=== PATIENT | female | born 1950 | race Caucasian/White ===

== ENCOUNTER → 2018-06-22 05:57 | Day surgery (SDC) | payer BC ==
[~2018-06-22 05:57] MED LIST: Atracurium* 10 MG/ML 10 ML VIAL ONE; Buffered Lidocaine 0.9% SYRIN* 5 ML/SYR SYRINGE INTRADERM ONE; Dexamethasone TAB* 4 MG ONE; Dexamethasone TAB* 4 MG PO ONE; DiMENhydriNATE IV* 50 MG/ML VIAL IV PUSH PRN; Famotidine IV* 10 MG/ML 2 ML (20 mg) IV ONE; Famotidine IV* 10 MG/ML 2 ML (20 mg) ONE; Lidocaine 2% PF * 5 ML VIAL ONE; Midazolam* 1 MG/ML 10 ML VIAL (10 MG) ONE; Naloxone* 0.4 MG/ML 1 ML VIAL IV PRN; Ondansetron ODT TAB* 4 MG ONE; Ondansetron TAB* 4 MG PO ONE; PROCHLORPERAZINE INJ 5 MG/ML 2 ML VIAL IV PRN; Phenylephrine INJ* 10 MG/ML 1 ML VIAL (10 MG) ONE; Propofol* 10 MG/ML 20 ML BTL IV PUSH ONE; Scopolamine 1.5 mg* PATCH TRANSDERM PRN; Scopolamine PATCH Remove* 1 NOTE MISC PATCH OFF ONE; Succinylcholine* 20 MG/ML 10 ML VIAL ONE; fentaNYL* 50 MCG/ML 2 ML VIAL (100 MCG VIAL) IV PRN; fentaNYL* 50 MCG/ML 2 ML VIAL (100 MCG VIAL) ONE; oxyCODONE/Acetamin 5/325 MG* TAB PO PRN
[2018-06-22 08:42] VITALS: BP 131/78
--- NOTE | 2018-06-22 08:42 | RAD ---
INDICATION: Low back pain with radiation down the right groin and lower extremity COMPARISON: Lumbar spine radiograph dated April 12, 2018 TECHNIQUE: Coronal complex director, sagittal T1, inversion recovery, T2, and axial T1, T2 images were acquired. FINDINGS: The spinal cord terminates at the T12/L1 level. There are no intrinsic abnormalities of the visualized cord. The lower thoracic and lumbar vertebral bodies are appropriately aligned. There is chronic appearing loss of vertebral body height at L1 and to a lesser extent at L2. There is loss of fluid signal at multiple lumbar levels with notable loss of intervertebral disc height at L1/L2. Axial view images: Less otherwise specified below there is no significant central canal stenosis or neural foraminal stenosis. T12-L1:There is no significant central canal or neural foraminal stenoses. L1-L2: Broad-based disc protrusion combines with facet arthropathy and a mild degree of thickening of the ligamentum flavum to cause mild bilateral neural foraminal stenosis. L2-L3: Broad-based disc protrusion combines with thickening of the ligamentum flavum and facet arthropathy to cause mild to moderate bilateral neural foraminal stenosis and a mild degree of central canal stenosis. L3-L4: Broad-based disc protrusion extending into the neural foramen bilaterally combines with facet arthropathy and thickening of ligamentum flavum to cause a very mild degree of central canal stenosis mild left and moderate right neural foraminal stenosis. L4-L5: Broad-based disc protrusion combines with facet arthropathy and thickening of ligamentum flavum to cause mild bilateral neural foraminal stenosis. L5-S1: There is no significant central canal or neural foraminal stenoses. IMPRESSION: Multilevel degenerative disc disease of the lumbar spine causing varying degrees of central canal or neural foraminal stenoses as described above.
== END | disposition home or self-care (01) ==
LOC: OR 05:57
PROVIDERS: ATTEND Neurological Surgery
DX: M51.16 Intervertebral disc disorders with radiculopathy, lumbar region (principal); M48.061 Spinal stenosis, lumbar region without neurogenic claudication; Z87.891 Personal history of nicotine dependence
CPT/HCPCS: 72148; A9270-GY; J0330; J2250; J2704; J3010; J8540